=== PATIENT | male | born 1980 | race Caucasian/White ===

== ENCOUNTER → 2018-06-07 10:35 | Outpatient (CLI) | payer OTHER, SELFPAY ==
--- NOTE | 2018-06-07 | DI.RAD.S_ITS ---
PROCEDURE: XR RIBS LT 2V INDICATIONS: RIB PAIN TECHNIQUE: 2 views of the left ribs were acquired. COMPARISON: [facility], CT, ABDOMEN/PELVIS WITH CONTRAST, 02/18/2013, 5:34. FINDINGS: Surgical changes and devices: Numerous left upper quadrant postoperative clips are seen. Bones and chest wall: No fractures or dislocations. No suspicious bony lesions. Overlying soft tissues appear unremarkable. Lungs and pleura: The visualized lung appears clear. No pleural effusions or pneumothorax are visible. IMPRESSION: No focal rib abnormality can be seen. No pneumothorax. Numerous left rib quadrant postoperative clips are seen. Dictated by: Humberto Ambrocio M.D. on 06/07/2018 at 11:30 Approved by: Humberto Ambrocio M.D. on 06/07/2018 at 11:30
== END ==
PROVIDERS: PCP Family Medicine; Visit Provider Family Medicine
DX: R07.81 Pleurodynia (principal)
CPT/HCPCS: 71100

== ENCOUNTER → 2021-02-10 13:13 | Outpatient (ROUT) | payer OTHER, SELFPAY ==
[2021-02-10 13:46] LABS: COVID19 -Nasal RAPID Negative (Negative)
== END ==
PROVIDERS: Visit Provider Family Medicine
DX: J02.9 Acute pharyngitis, unspecified (principal); R51.9 Headache, unspecified; J34.89 Other specified disorders of nose and nasal sinuses
CPT/HCPCS: 87635

== ENCOUNTER → 2021-06-23 12:14 | Outpatient (ROUT) | payer OTHER, SELFPAY ==
[2021-06-23 12:47] LABS: COVID19 -Nasal RAPID Negative (Negative)
== END ==
PROVIDERS: Visit Provider Family Medicine
DX: Z20.822 Contact with and (suspected) exposure to COVID-19 (principal)
CPT/HCPCS: 87635

== ENCOUNTER → 2021-11-24 19:16 | Outpatient (CLI) | payer OTHER, SELFPAY ==
--- NOTE | 2021-11-24 | DI.MRI.S_ITS ---
PROCEDURE: MR WRIST RT WO CON INDICATIONS: RIGHT WRIST STRAIN TECHNIQUE: Noncontrast coronal proton density fast spin echo and T2 fast spin echo with fat saturation; coronal 3-D gradient echo, axial T1 spin echo and T2 fast spin echo with fat saturation, sagittal T1 spin echo through the wrist. COMPARISON: None. FINDINGS: Image quality: Excellent. Bones and cartilage: Ulnar negative variance is seen. The carpal bones are normally aligned. Marrow edema within lunate is seen with subcortical cystic areas in proximal and lateral portion of lunate. No discrete fracture line or cortical disruption is noted. Nonspecific subcortical cyst formation in proximal scaphoid and capitate are also seen. No other area of abnormal marrow signal. Carpal ligaments: There is suggestion of low-grade intrasubstance partial-thickness tear involving volar aspect of scapholunate ligament. The lunotriquetral ligaments appear intact. In the absence of intra-articular contrast, the extrinsic carpal ligaments are not well identified. On sagittal images, the pisohamate ligament appears intact. Triangular fibrocartilage complex: Signal abnormality involving triangular fibrocartilage near its radial insertion is noted concerning for focal TFCC tear in this area. The adjacent meniscal homolog appears normal in the absence of intra-articular contrast. The extensor carpi ulnaris tendon is normal in location and morphology. Tendons and soft tissues: The carpal tunnel structures appear normal, including the median nerve. The ulnar nerve appears normal within Guyon's canal. All six extensor tendon compartments demonstrate normal morphology, without pathologic tendon sheath fluid. There is possible ganglion cyst over volar aspect of ulnar styloid and measures 5 x 7 x 11 mm in size. IMPRESSION: 1. 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 2. Mild wrist joint osteoarthritis and nonspecific subcortical cystic changes in carpal bones as above. No fracture or dislocation. Ulnar negative variance. 3. Suggestion of sprain/low-grade partial-thickness tear involving volar component of scapholunate ligament. 4. 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 5. Possible small ganglion cyst over volar aspect of ulnar styloid. Dictated by: Konrad Shine M.D. on 11/25/2021 at 11:54 Approved by: Konrad Shine M.D. on 11/25/2021 at 12:03
== END ==
PROVIDERS: Referring Provider Family Medicine; Visit Provider Family Medicine
DX: S66.911A Strain of unspecified muscle, fascia and tendon at wrist and hand level, right hand, initial encounter (principal); M19.031 Primary osteoarthritis, right wrist; X58.XXXA Exposure to other specified factors, initial encounter
CPT/HCPCS: 73221

== ENCOUNTER → 2022-08-16 15:38 | Outpatient (CLI) | payer OTHER, SELFPAY ==
--- NOTE | 2022-08-16 15:40 | DI.CT.S_ITS ---
PROCEDURE: CT WRIST RIGHT WITHOUT CON INDICATIONS: RIGHT WRIST PAIN TECHNIQUE: Noncontrast 1 mm axial sections acquired through the carpal bones, with coronal and sagittal reformats. COMPARISON: [facility], MR, MR WRIST RT WO CON, 11/24/2021, 19:25. FINDINGS: Image quality: Excellent. Bones: ORIF of the distal radius has been performed. There is a healing transversely oriented fracture within the distal radius. Hardware appears intact. No evidence of acute fracture. There is widening of the scapholunate interval. Soft tissues: No soft tissue fluid collections. IMPRESSION: 1. ORIF of distal radius fracture. 2. Findings suggestive of scapholunate ligamentous injury. This could be further assessed with MRI arthrography, if clinically indicated. Dictated by: Carlos Reyes M.D. on 08/16/2022 at 16:34 Transcribed by: ELÍAS on 08/16/2022 at 16:37 Approved by: Carlos Reyes M.D. on 08/16/2022 at 16:52
== END ==
PROVIDERS: Referring Provider Orthopaedic Surgery Hand Surgery; Visit Provider Orthopaedic Surgery Hand Surgery
DX: S52.501D Unspecified fracture of the lower end of right radius, subsequent encounter for closed fracture with routine healing (principal); S63.511D Sprain of carpal joint of right wrist, subsequent encounter; M93.1 Kienbock's disease of adults; X58.XXXD Exposure to other specified factors, subsequent encounter
CPT/HCPCS: 73200